=== PATIENT | female | born 1965 | race Caucasian/White ===

== ENCOUNTER → 2017-11-29 16:45 | Outpatient (CLI) | payer BC, SELFPAY ==
--- NOTE | 2017-11-29 13:00 | BRBX_PTH ---
PATIENT: CL LOUIE LOC: [facility] U#:[id number] AGE/SX: 59/F ROOM: RE11/29/[address]: Dr. Fernanda Hernandez MD : [id number] BED: DIS: SPEC #: [id number] RECD: 11/29/17 15:31 STATUS: IVETTE SON #: [id number] MAYCO: 11/29/17 13:[address]: Fernanda Hernandez DEPT: SURGICAL PATHOLOGY RECD BY: Jeb Russell ENTERED: 12/02/17 12:08 SP TYPE: BREAST BX OTHR DR: Dr. Magdiel Pitt MD Tissues: Right breast, NOS Procedures: Surgery Specimen Level IV HEADER OPERATION: Ultrasound-guided needle core breast biopsy, right PRE-OP DIAGNOSIS: Abnormal mammogram TISSUE SUBMITTED: Right breast needle core biopsy ISCHEMIC TIME: 5 minutes FIXATION TIME: 78.5 hours MICROSCOPIC DIAGNOSIS Right breast, ultrasound-guided needle core biopsy: Fibrocystic changes and intraductal hyperplasia without atypia. Negative for malignancy. See comment. [email or web address] 12/03/17 COMMENT Correlation with clinical, radiologic findings and appropriate follow up are necessary. MICROSCOPIC DESCRIPTION Slides are reviewed. GROSS DESCRIPTION Received in fixative is one container labeled with the patient's name and designated right breast biopsy. The specimen consists of multiple elongated fragments of duron-yellow fibroadipose tissue that in aggregate measure 2.5 x 0.6 x 0.1 cm. The entire specimen is submitted in one cassette. / [email or web address] 12/02/17 TC:5 CPT: 07294
== END ==
PROVIDERS: Visit Provider Surgery
DX: R92.8 Other abnormal and inconclusive findings on diagnostic imaging of breast (principal)
CPT/HCPCS: 88305